=== PATIENT | male | born 1945 | race African-American/Black ===

== ENCOUNTER → 2017-04-22 | Outpatient (CLI) | payer MEDICARE ==
--- NOTE | ~2017-04-22 | US13 ---
[facility] A Service of [facility] RADIOLOGY TEXT RESULTS PATIENT: POLO NATH LOCATION: SG : 47 UNIT #: [id number] AGE: [address]: Sergio Ferraro MD SEX: M ORDER DR: [id number] [place] [id number] O MR#: [id number] Acc #: [id number] NAME: POLO NATH : 1945 SEX: M STUDY DATE/TIME: 04/22/2017 8:25 UNIT: [facility] ROOM: STUDY DESCRIPTION: US Aorta Limited Attending Physician: Sergio Ferraro M.D. Referring Physician: Sergio Ferraro M.D. Ordering Physician: Sergio Ferraro M.D. Primary Care Physician: Sergio Ferraro M.D. MEDICAL IMAGING REPORT This report is preliminary unless electronic signature is present. EXAM Abdominal aortic ultrasound, 04/22/2017 REASON FOR EXAM Previous tobacco use. History of hypertension, hyperlipidemia. FINDINGS B-mode imaging and color Doppler imaging of the infrarenal aorta was performed showing the vessel to be widely patent, without evidence of stenosis and a mid-aortic velocity of 115 cm/sec. The proximal infrarenal aorta is 2 cm, mid aorta 2.2 cm and distal aorta 1.9 cm. IMPRESSION No evidence of infrarenal abdominal aortic aneurysm or stenosis. Dictated by... Vinnie Cooper M.D. THIS IS AN ELECTRONICALLY VERIFIED REPORT Vinnie Cooper M.D. at 04/23/2017 10:33 AM CHRISTOPHER/corrina TD: 04/22/2017 18:53 JOB #: [id number] MEDICAL IMAGING REPORT Page 1 of 1
== END | disposition home or self-care (01) ==
LOC: SGUS 08:16
DX: Z13.6 Encounter for screening for cardiovascular disorders (principal)
CPT/HCPCS: 76775